=== PATIENT | male | born 1960 | race Caucasian/White ===

== ENCOUNTER 2019-11-16 08:05 | Outpatient (AMBR) | payer OTHER, MEDICAID, SELFPAY ==
--- NOTE | 2019-11-16 08:45 | PT.OIERPT ---
PT OP Initial Eval Patient Information Visit Reasons: [facility] Medical Diagnosis: M54.16 Treatment Dx #1: Back Pain Treatment Dx #2: L/S Mobility Deficits Start of Care: 11/16/19 Date of Onset: 5 years ago Initial Assessment Subjective Pt is a 58 y/o male c/o chronic back pain (11/12) with intermittent shooting pain L>R. Pt's recent MRI found disc bulge at L2-L5 and schmorl's mode L1-L2. Pt has limitation with prolonged walking, standing, chores, self care, riding his bike, lifting, recreational activities, and performing yardwork. Pt mention that he tried shots in the back which seems to give him some relief for a few weeks. Objective L/S AROM: all motions are WFL with end range pain in left sidebending and extension Hip PROM: all motions are WFL Hip MMTs Glute Med: 3/5 Glute Max: 3/5 Special Test (+) L/S quadrant (+) nati's Palpation: TTP left L1-L3 facets Assessment Pt demonstrate L/S mobility deficits with pain leading to decline function and difficulty with ADLs. Pt will attempt physical therapy if pain persist Pt will be refer back to MD for further consultation. Short Term and Senior Care Goals 1) Increase L/S AROM WNL in 6 wks to be able to perform chores 2) Increase core strength WFL in 6 wks to be able to perform lifting activities 3) Decrease back pain to 3/10 in 6 wks to be able to sit and stand more than 1 hr 4) Increase hip MMTs grossly to 4-/5 in 6 wks to be able to perform yardwork 5) Indep with HEP Treatment Plan 1) Manual Therapy 2) Therapeutic Activities 3) Therapeutic Exercises 4) Modalities (ice, heat, traction) Frequency and Duration 2 x wk for 6 wks Certification Dates: to 02/16/20 Office Procedures PT Procedures PT Date of Service: 11/16/19 OP PT Eval Mod Complex 30 minutes: Yes
--- NOTE | 2019-11-19 14:23 | PTNOTE_ITS ---
PT Outpatient Daily Note Date of Service: 11/19/2019 OP Daily Note Visit Reasons: [facility] Outpatient Physical Therapy Treatment Date: 11/19/19 Subjective: pt states his back pain is not as bad as he took a shot for pain. pt requested e-stim upon approach. spoke with PT and he agreed. Objective: see flow sheet. Assessment: started with modality in supine position in which pt stated he was ok with. he tolerated the position with no complaints. he does demonstrate poor posture as he has forward stoop posture. followed by bike with no resistance. he had good endurance with no fatigue. light resistance for BLE strengthening. pt was fatigued after treatment but denied increase in pain. Plan: continue POC per PT. Length of Time (minutes) of Treatment: 30 Minutes FINANCIAL ADVISOR Service Modifier Method I: Divide the number of min of care provided by the FINANCIAL ADVISOR/CAN CUTTER by the total min of care provided then multiply by 100. If greater than 11 percent modifier is required. Method II: Divide the total time of care provided to patient by 10 (round to the nearest whole number) and add 1 min. to set the minimum time requirement. If treatment total was 60 min., then 10% of 6 min Did FINANCIAL ADVISOR provide more than 10% of the care?: Yes PT CQ modifier applied: CQ Modifier applied Office Procedures PT Procedures PT Date of Service: 11/19/19 Therapeutic Exercise 30 minutes: Yes PT Procedures PT Date of Service: 11/16/19 OP PT Eval Mod Complex 30 minutes: Yes
--- NOTE | 2019-11-23 10:08 | PT.ODAYNRPT ---
PT Outpatient Daily Note Date of Service: 11/23/2019 OP Daily Note Visit Reasons: [facility] Outpatient Physical Therapy Treatment Date: 11/23/19 Subjective: pt states his back feels the same. he had no complaints from last visit. Objective: see flow sheet. Assessment: added heat during estim in supine in which he had no difficulty getting into position and getting up. added another exercise inside the PB similar to the other ones in which he had no difficulty with. during new exercise for back strengthening he does not have much mid back muscle activation as palpated as he retracted the mid back. Plan: continue POC per PT. Office Procedures PT Procedures PT Date of Service: 11/19/19 Therapeutic Exercise 30 minutes: Yes PT Procedures PT Date of Service: 11/16/19 OP PT Eval Mod Complex 30 minutes: Yes PT Procedures PT Date of Service: 11/23/19 OP Electrical Stimul Unattended: Yes Therapeutic Exercise 15 minutes: Yes
--- NOTE | 2019-11-26 12:30 | PT.ODAYNRPT ---
PT Outpatient Daily Note Date of Service: 11/25/19 OP Daily Note Visit Reasons: [facility] Outpatient Physical Therapy Treatment Date: 11/25/19 Subjective: Pt's back is a little better. Pt received another shot in his back. Pt will like to skip e-stim today Objective: Please see flow chart for list fo ther ex performed Assessment: tolerate exercises with minimal pain;slight soreness after therapy session Plan: Continue with PT Length of Time (minutes) of Treatment: 30 Minutes Office Procedures PT Procedures PT Date of Service: 11/19/19 Therapeutic Exercise 30 minutes: Yes PT Procedures PT Date of Service: 11/25/19 Therapeutic Exercise 30 minutes: Yes PT Procedures PT Date of Service: 11/16/19 OP PT Eval Mod Complex 30 minutes: Yes PT Procedures PT Date of Service: 11/23/19 OP Electrical Stimul Unattended: Yes Therapeutic Exercise 15 minutes: Yes
--- NOTE | 2019-12-02 10:48 | PT.ODAYNRPT ---
PT Outpatient Daily Note Date of Service: 12/02/19 OP Daily Note Visit Reasons: [facility] Outpatient Physical Therapy Treatment Date: 12/02/19 Subjective: Pt's back feels stronger and will like to continue PT Objective: Please see flow chart for list of ther ex performed Assessment: tolerate exercises with minimal pain Plan: Continue with PT Length of Time (minutes) of Treatment: 30 Minutes Office Procedures PT Procedures PT Date of Service: 11/19/19 Therapeutic Exercise 30 minutes: Yes PT Procedures PT Date of Service: 11/25/19 Therapeutic Exercise 30 minutes: Yes PT Procedures PT Date of Service: 12/02/19 Therapeutic Exercise 30 minutes: Yes PT Procedures PT Date of Service: 11/16/19 OP PT Eval Mod Complex 30 minutes: Yes PT Procedures PT Date of Service: 11/23/19 OP Electrical Stimul Unattended: Yes Therapeutic Exercise 15 minutes: Yes
== END 2019-12-04 23:59 | disposition home or self-care (01) ==
PROVIDERS: PCP Family Medicine; Referring Provider Family Medicine; Visit Provider Physical Medicine & Rehabilitation Pain Medicine
DX: M54.16 Radiculopathy, lumbar region (principal); M54.5 Low back pain; G89.29 Other chronic pain; R26.2 Difficulty in walking, not elsewhere classified
CPT/HCPCS: 97014; 97110; 97162; G0283

== ENCOUNTER 2024-03-26 09:51 | Emergency (ER) | payer MEDICARE, SELFPAY ==
[2024-03-26 09:52] VITALS: PULSE 89; RESP 18; O2SAT 98
[2024-03-26 10:03] VITALS: BP 135/97; PULSE 83; RESP 19; TEMP 36.2; O2SAT 99; BMI 32.4
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
[2024-03-26] MEDS: DIAZEPAM 5 MG TABLET 10 MG PO (10:25)
[2024-03-26] MEDS: KETOROLAC INJ 30 MG/ML VIAL IM (10:25)
== END 2024-03-26 10:30 | disposition home or self-care (01) ==
LOC: SERX 10:31
PROVIDERS: Emergency Provider Emergency Medicine
DX: M62.838 Other muscle spasm (principal); M25.511 Pain in right shoulder; I10 Essential (primary) hypertension; Z87.891 Personal history of nicotine dependence; Z88.5 Allergy status to narcotic agent
CPT/HCPCS: 96372; 99283; J1885; A9270

== ENCOUNTER 2024-06-15 21:01 | Emergency (ER) | payer MEDICARE, MEDICAID, SELFPAY ==
[2024-06-15 21:12] VITALS: PULSE 77; RESP 20; O2SAT 99; BMI 27.3
[2024-06-15 21:21] VITALS: BP 136/91; PULSE 79; RESP 18; TEMP 36.7; O2SAT 96
--- NOTE | 2024-06-15 21:37 | XR_ITS ---
Examination: Knee, right , 3 views Technique: Knee AP, lateral, oblique 3 views Date and time of exam: June 15, 2024 2143 hrs. Indications: Twisting injury to the knee yesterday, knee pain. 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
--- NOTE | 2024-06-15 21:38 | PD.EDRME ---
Rapid Medical Screening Exam RME Arrival date/time: 06/15/24 21:01 63-year-old male presents emergency department complaining of right knee pain after having a twisting motion yesterday. Patient denies actual fall. Chief Complaint: Extremity Injury, Lower Time Seen by Provider: 06/15/24 21:20 Vital signs: Vital Signs Temperature 98.0 F 06/15/24 21:21 Pulse Rate 79 06/15/24 21:21 Respiratory Rate 18 06/15/24 21:21 Blood Pressure 136/91 H 06/15/24 21:21 Pulse Oximetry (%) 96 06/15/24 21:21 Oxygen Delivery Method Room Air 06/15/24 21:21 Vital signs reviewed by provider: Yes
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
[2024-06-15] MEDS: KETOROLAC INJ 60 MG/2 ML VIAL 30 MG IM (22:46)
== END 2024-06-15 23:08 | disposition home or self-care (01) ==
LOC: SERX 23:13
PROVIDERS: Emergency Provider Emergency Medicine; PCP Internal Medicine
DX: M25.461 Effusion, right knee (principal); M23.91 Unspecified internal derangement of right knee; S89.91XA Unspecified injury of right lower leg, initial encounter; X50.1XXA Overexertion from prolonged static or awkward postures, initial encounter
CPT/HCPCS: 73564; 96372; 99283; J1885

== ENCOUNTER 2024-08-21 11:28 | Emergency (ER) | payer MEDICARE, SELFPAY ==
--- NOTE | 2024-08-21 | XR_ITS ---
Examination: MRI cervical spine without intravenous contrast Date and time of exam: August 21, 2024 at 1325 hours INDICATIONS: Neck pain getting worse the last 2 months, CT cervical spine February 28, 2024 cortical erosions contiguous margins C4-C5 Technique: Multiple axial and sagittal sections of the cervical spine to been obtained. T2 weighted sagittal sections, TR 3, 270, TE 117 T1-weighted sagittal sections, TR 500, TE 11 T1-weighted axial sections, TR 607, TE 12, axial sections TR 18, TE 27 and T2 weighted transverse sections, TR 3920, TE 122. Findings: Adequate alignment cervical vertebral bodies No cervical fracture Intact odontoid Advanced disc narrowing C3-C4, C4-C5 No localized enlargement cervical cord On the T2-weighted images increased signal C3, C4, C5 The disc at the C3-C4 C4-C5 level do not show increased signal C2-C3 no disc protrusion C3-C4 moderate bilateral neural foraminal stenosis C4-C5 advanced bilateral neural foraminal stenosis C5-C6 advanced bilateral neural foraminal stenosis C6-C7 advanced bilateral neural foraminal stenosis C7-T1 no disc protrusion IMPRESSION: No findings diagnostic for discitis Increased signal diffusely involving the C3, C4, C5 vertebral bodies Consider elective whole body bone scan follow-up to exclude osseous metastatic disease Cervical spinal stenosis as above
[2024-08-21 11:28] VITALS: BMI 27.3
[2024-08-21 11:36] VITALS: BP 128/80; PULSE 78; RESP 21; TEMP 36.6; O2SAT 95
--- NOTE | 2024-08-21 11:45 | PD.EDRME ---
Rapid Medical Screening Exam RME Arrival date/time: 08/21/24 11:28 63-year-old male with DDD presents to the emergency department today with complaints of neck pain worse with movement Chief Complaint: Extremity Injury, Upper Vital signs: Vital Signs Temperature 97.9 F 08/21/24 11:36 Pulse Rate 78 08/21/24 11:36 Respiratory Rate 21 H 08/21/24 11:36 Blood Pressure 128/80 08/21/24 11:36 Pulse Oximetry (%) 95 08/21/24 11:36 Oxygen Delivery Method Room Air 08/21/24 11:36
[2024-08-21] MEDS: traMADol HCL 50 MG TABLET PO (11:48)
--- NOTE | 2024-08-21 13:13 | PC.NURSE ---
PT CAME UP TO THIS RN AND SAID HE DOESN'T WANT TO WAIT ANYMORE, AND WALKED OUT THE DOOR.
--- NOTE | 2024-08-21 13:23 | PC.NURSE ---
PT CAME BACK WHILE THIS RN WAS AWAY FROM DESK PERFORMING A NURSING TASK, AND CALLED TO MRI W/O THIS RNS KNOWLEDGE, THUS RN CONTINUED WITH ELOPMENT DISCHARGE AFTER RETURNING TO DESK.
[2024-08-21 14:23] LABS: Basophils # (Auto) 0.1 Thou/mm3 (0.0-0.2); Basophils % (Auto) 1 % (0-2.5); Eosinophils # (Auto) 0.3 Thou/mm3 (0.0-0.5); Eosinophils % (Auto) 5 % (0-10); Hematocrit 41.2 % (41.0-53.0); Immature Granulocytes % (Auto) 0 % (0-0); Immature Granulocytes Auto 0.01 Thou/mm3 (0.00-0.00); Lymphocytes # (Auto) 1.3 Thou/mm3 (1.0-4.8); Lymphocytes % (Auto) 23 % (10-50); Mean Corpuscular Hemoglobin 32.2 pg (25.0-35.0); Mean Corpuscular Volume 95 fL (80-100); Monocytes # (Auto) 0.5 Thou/mm3 (0.0-0.8); Monocytes % (Auto) 8 % (0-12); Neutrophils # (Auto) 3.7 Thou/mm3 (1.8-7.7); Neutrophils % (Auto) 63 % (37-80); Nucleated Red Blood Cell % 0 /100 WBC (0); Platelet Count 173 Thou/mm3 (140-440); RDW Standard Deviation 44.4 fL (35.1-43.9); Red Blood Count 4.35 Miln/mm3 (4.50-5.90); White Blood Count 5.8 Thou/mm3 (3.8-10.6)
[2024-08-21 14:32] LABS: Sed Rate (ESR) 3 mm/hr (0-20)
[2024-08-21 14:42] LABS: Alanine Aminotransferase 14 U/L (10-49); Albumin, Serum 3.8 gm/dL (3.4-4.8); Albumin/Globulin Ratio 1.7 (1.2-2.2); Alkaline Phosphatase 83 U/L (46-116); Anion Gap 0 (7-16); Aspartate Amino Transferase 17 U/L (0-34); BUN/Creatinine Ratio 13 Ratio (12-20); Bilirubin,Total 0.4 mg/dL (0.3-1.2); Blood Urea Nitrogen 13 mg/dL (9-23); C-Reactive Protein < 0.5 mg/dL (0.0-0.9); Calcium (Corrected) 9.2 mg/dL (8.5-10.1); Carbon Dioxide 33.8 mMol/L (20.0-31.0); Chloride 106 mMol/L (98-107); Estimated Creatinine Clearance 75.1 mL/min (>60); Globulin 2.3 gm/dL (2.3-3.5); Glucose 108 mg/dL (74-106); Osmolality,Calculated 280 (275-295); Potassium 4.5 mMol/L (3.4-5.1); Sodium 140 mMol/L (136-145); Total Protein 6.1 gm/dL (5.7-8.2); eGFR > 60 See Note
--- NOTE | 2024-08-21 15:44 | PC.NURSE ---
PT ELOPED AGAIN
== END 2024-08-21 15:45 | disposition left against medical advice (07) ==
LOC: SERX 12:18
PROVIDERS: Emergency Provider Emergency Medicine; PCP Internal Medicine
DX: M54.2 Cervicalgia (principal); Z53.29 Procedure and treatment not carried out because of patient's decision for other reasons
CPT/HCPCS: 36415; 72141; 80053; 85025; 85652; 86140; 99281; A9270

== ENCOUNTER 2024-09-02 17:58 | Emergency (ER) | payer MEDICARE, SELFPAY ==
[2024-09-02 18:17] VITALS: BP 133/83; PULSE 97; RESP 18; TEMP 36.9; O2SAT 97; BMI 28.1
[2024-09-02] MEDS: KETOROLAC INJ 60 MG/2 ML VIAL IM (18:35)
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
== END 2024-09-02 18:54 | disposition home or self-care (01) ==
LOC: SERX 18:58
PROVIDERS: Emergency Provider Emergency Medicine
DX: M54.2 Cervicalgia (principal); I10 Essential (primary) hypertension
CPT/HCPCS: 96372; 99283; J1885

== ENCOUNTER 2024-09-18 08:18 | Outpatient (RCR) | payer MEDICARE, SELFPAY ==
--- NOTE | 2024-09-18 | XR_ITS ---
Examination: Bone scan whole body, radioisotope Date and time of exam: September 18, 2024 1328 hours Comparison November 21, 2011 INDICATIONS: Increased signal in the C3 C4 C5 vertebral bodies on the MRI cervical spine August 21, 2024 Technique: Study has been performed with intravenous administration of 22.4 mci 99M technetium MDP. Anterior, posterior whole body images are obtained. Images have been obtained including the lower extremities. Findings: Increased isotope accumulation in the cervical spine on the posterior view centered at C4-C5 Asymmetric uptake about the knees Uptake in the left kidney versus posterior lower left ribs IMPRESSION: Positive bone scan most prominent uptake posteriorly at C4-C5 Consider follow-up MRI cervical spine post intravenous contrast
== END 2024-09-23 23:59 | disposition home or self-care (01) ==
LOC: SNUC 08:18
PROVIDERS: PCP Internal Medicine; Referring Provider Orthopaedic Surgery; Visit Provider Orthopaedic Surgery
DX: R93.7 Abnormal findings on diagnostic imaging of other parts of musculoskeletal system (principal); C79.9 Secondary malignant neoplasm of unspecified site
CPT/HCPCS: 78306; A9503

== ENCOUNTER 2024-11-07 15:17 | Emergency (ER) | payer MEDICARE, SELFPAY ==
[2024-11-07 15:18] VITALS: PULSE 92; RESP 18; O2SAT 99; BMI 29.0
[2024-11-07 15:21] VITALS: BP 118/75; PULSE 115; RESP 18; TEMP 36.7; O2SAT 95
--- NOTE | 2024-11-07 15:28 | XR_ITS ---
Examination: Knee, left , 3 views Technique: Knee AP, lateral, oblique 3 views Date and time of exam: November 07, 2024 1549 hours INDICATIONS: Twisting injury to the knee today, knee pain. FINDINGS: Severe osteopenia Prosthetic component which articulates with the patella Old bone associated anterior tibial tubercle Moderate knee effusion No acute fracture Suprapatellar joint bodies IMPRESSION: No acute fracture
--- NOTE | 2024-11-07 15:28 | PD.EDLOWEX ---
Lower Extremity Injury RME/HPI General Chief Complaint: Extremity Injury, Lower Stated Complaint: LEFT KNEE PAIN Time Seen by Provider: 11/07/24 15:27 Arrival date/time: 11/07/24 15:17 Mode of arrival: EMS Limitations: no limitations RME / HPI RME / HPI Narrative: 63-year male was brought in by EMS for left knee pain. He states he was changing a light bulb when he had a twisting injury. He had no associated falls. He has diffuse left knee swelling without any gross deformities. He is able to self ambulate with discomfort. He has no other acute complaints. Related Data Home Medications ?Medication ?Instructions ?Recorded ?Confirmed omeprazole 40 mg capsule,delayed 40 mg PO QDAY 09/19/22 01/24/23 release allopurinol 300 mg tablet 300 mg PO QDAY 11/29/22 01/24/23 atorvastatin 40 mg tablet 40 mg PO QPM 11/29/22 01/24/23 loratadine 10 mg tablet (Claritin) 10 mg PO QDAY 01/24/23 01/24/23 metoprolol succinate 50 mg 50 mg PO QDAY 01/24/23 01/24/23 tablet,extended release 24 hr Previous Rx's ?Medication ?Instructions ?Recorded tamsulosin 0.4 mg capsule (Flomax) 0.4 mg PO Q24H #90 caps 11/30/22 tramadol 50 mg tablet 50 mg PO TID PRN pain #7 tabs 01/25/23 ibuprofen 600 mg tablet 600 mg PO Q8H PRN fever or pain 09/18/23 #20 tabs hydrocodone 5 mg-acetaminophen 325 1 tab PO BID PRN pain #10 tabs 03/26/24 mg tablet ibuprofen 800 mg tablet 800 mg PO TID PRN pain #30 tabs 03/26/24 ibuprofen 600 mg tablet 600 mg PO Q8H PRN pain #20 tabs 06/15/24 Allergies Allergy/AdvReac Type Severity Reaction Status Date / Time morphine Allergy Severe Rash Verified 11/07/24 15:21 codeine Allergy Intermediate Hives Verified 11/07/24 15:21 Penicillins Allergy Intermediate Rash Verified 11/07/24 15:21 propoxyphene Allergy Intermediate Rash Verified 11/07/24 15:21 Review of Systems Review of Systems Systems Reviewed: All systems reviewed, normal except as documented ED Exam General Limitations: Present no limitations General appearance: Present alert and in no apparent distress Head Head exam: Present atraumatic Eye Eye exam: Present normal appearance, PERRL and EOMI ENT ENT exam: Present normal exam, normal oropharynx and mucous membranes moist Neck Neck exam: Present normal inspection, full ROM and trachea midline Chest Chest inspection: Present normal inspection and symmetric chest wall rise Respiratory Respiratory exam: Present normal lung sounds bilaterally Cardiovascular Cardiovascular exam: Present regular rate, normal rhythm and normal heart sounds Abdominal Exam Abdominal exam: Present soft and normal bowel sounds Extremities Exam Extremities exam: Present other (Patient has full passive range of motion with discomfort. Mild crepitus is present. Mild joint edema and warmth is present. There are no open wounds. No induration or fluctuance. No blotting of the patella.) Back Exam Back exam: Present normal inspection and full ROM Neurological Exam Neurological exam: Present alert, oriented X3 and CN II-XII intact Psychiatric Psychiatric exam: Present normal affect and normal mood Skin Skin exam: Present warm, dry, intact and normal color Course Quality Measures none Orders Category Date Time Status XR knee LT 3V Stat Exams 11/07/24 15:28 Completed Acetaminophen Tab [Tylenol Tab] Med 11/07/24 15:28 Discontinued 650 mg PO X1 ONE Ibuprofen Tab [Motrin Tab] Med 11/07/24 15:28 Discontinued 600 mg PO X1 ONE Vital Signs Vital signs: Vital Signs Temperature 98.0 F 11/07/24 15:21 Pulse Rate 115 H 11/07/24 15:21 Respiratory Rate 18 11/07/24 15:21 Blood Pressure 118/75 11/07/24 15:21 Pulse Oximetry (%) 95 11/07/24 15:21 Oxygen Delivery Method Room Air 11/07/24 15:21 Extremity Injury, Lower MDM Narrative MDM Narrative:: Patient eloped from the ER prior to receiving his x-ray results. Patient data External records reviewed:: None Clinical information provided by:: patient and EMS Social determinants that could affect healthcare access:: none Patient has the following chronic illnesses:: n/a How is presenting disease/condition affected by chronic disease/condition?: no chronic disease Evaluation data The following diagnostics were reviewed and interpreted by me:: radiology exam(s) (No acute osseous injury) Lab and/or radiology exams considered but not ordered:: n/a Interpretation Summary: No acute osseous injury Medications / Prescriptions Medications or Prescriptions considered but not ordered:: n/a Medication administrations:: Medication Administration History Discontinued Medications Acetaminophen (Acetaminophen 325 Mg Tablet) 650 mg PO X1 ONE Stop: 11/07/24 15:29 Last Admin: 11/07/24 16:13 Dose: 650 mg Documented By: ROBBIE Ibuprofen (Ibuprofen Tab 600 Mg Tablet) 600 mg PO X1 ONE Stop: 11/07/24 15:29 Last Admin: 11/07/24 16:12 Dose: 600 mg Documented By: ROBBIE See above Consultations Consultation(s) initiated? (list below): No Diagnosis Most likely diagnosis given after review of the tests above:: Knee sprain Admission Indicated Admission indicated?: not indicated Admission Request Was there a request for admission?: No Disposition Plan Disposition Plan: other (specify) (patient eloped ) Discharge Plan Plan Patient Disposition: Elopement Prescriptions/Referrals Prescriptions/Med Rec: No Action omeprazole 40 mg Capsule,Delayed Release(Dr/Ec) 40 mg PO QDAY atorvastatin 40 mg Tablet 40 mg PO QPM allopurinol 300 mg Tablet 300 mg PO QDAY tamsulosin [Flomax] 0.4 mg capsule 0.4 mg PO Q24H Qty: 90 0RF Rx Instructions: administer 30 minutes after same meal each day; swallow whole with liquid; do not crush/chew/dissolve/open ibuprofen 600 mg tablet 600 mg PO Q8H PRN (Reason: fever or pain) Qty: 20 0RF ibuprofen 800 mg tablet 800 mg PO TID PRN (Reason: pain) Qty: 30 0RF hydrocodone-acetaminophen 5-325 mg tablet 1 tab PO BID MDD 10 PRN (Reason: pain) Qty: 10 0RF metoprolol succinate 50 mg Tablet Extended Release 24 Hr 50 mg PO QDAY loratadine [Claritin] 10 mg Tablet 10 mg PO QDAY tramadol 50 mg tablet 50 mg PO TID PRN (Reason: pain) Qty: 7 0RF ibuprofen 600 mg tablet 600 mg PO Q8H PRN (Reason: pain) Qty: 20 0RF Referrals: Moises Lau MD [Primary Care Provider] - In 1 week Problem List Clinical Impression: Eloped from emergency department Patient/Caregiver Discharge Instructions Print Language: Filipino
[2024-11-07] MEDS: IBUPROFEN TAB 600 MG TABLET PO (16:12)
[2024-11-07] MEDS: ACETAMINOPHEN 325 MG TABLET 650 MG PO (16:13)
--- NOTE | 2024-11-07 20:43 | PC.NURSE ---
PER OTHER PATIENT IN LOBBY WHO KNOWS THIS PATIENT, SHE STATES THE PATIENT LEFT AND WENT HOME. THERE WAS ALSO NO ANSWER WHEN NELLY
--- NOTE | 2024-11-07 20:44 | PC.NURSE ---
ACCORDING TO OTHER PATIENT IN THE LOBBY, PT LEFT AND WENT HOME, OTHER PATIENTS STATES SHE KNOWS HIM. THERE WAS ALSO NO ANSWER X3 FOR PATIENT
== END 2024-11-07 20:45 | disposition left against medical advice (07) ==
PROVIDERS: Emergency Provider Emergency Medicine; PCP Family Medicine
DX: M25.462 Effusion, left knee (principal); X50.1XXA Overexertion from prolonged static or awkward postures, initial encounter; Z53.29 Procedure and treatment not carried out because of patient's decision for other reasons
CPT/HCPCS: 73562; 99283; A9270

== ENCOUNTER 2024-12-13 07:58 | Emergency (ER) | payer MEDICARE, SELFPAY ==
[2024-12-13 08:06] VITALS: BP 142/84; PULSE 94; RESP 17; TEMP 36.6; O2SAT 97; BMI 28.1
[2024-12-13] MEDS: CLINDAMYCIN PHOS INJ 150 MG/ML VIAL 6 ML 600 MG IM (08:27)
--- NOTE | 2024-12-13 09:02 | PD.EDSKIN ---
ED Skin Abcess FB-RME/HPI General Chief complaint: Skin/Abscess/Foreign Body Stated complaint: L ARM ABSCESS X 3 DAYS Time Seen by Provider: 12/13/24 08:03 Arrival date/time: 12/13/24 07:58 63-year-old male who admits to methamphetamine abuse presents the emergency department today for complaints of erythema to the left antecubital area Limitations: no limitations Related Data Home Medications ?Medication ?Instructions ?Recorded ?Confirmed omeprazole 40 mg capsule,delayed 40 mg PO QDAY 09/19/22 01/24/23 release allopurinol 300 mg tablet 300 mg PO QDAY 11/29/22 01/24/23 atorvastatin 40 mg tablet 40 mg PO QPM 11/29/22 01/24/23 loratadine 10 mg tablet (Claritin) 10 mg PO QDAY 01/24/23 01/24/23 metoprolol succinate 50 mg 50 mg PO QDAY 01/24/23 01/24/23 tablet,extended release 24 hr Previous Rx's ?Medication ?Instructions ?Recorded tamsulosin 0.4 mg capsule (Flomax) 0.4 mg PO Q24H #90 caps 11/30/22 tramadol 50 mg tablet 50 mg PO TID PRN pain #7 tabs 01/25/23 ibuprofen 600 mg tablet 600 mg PO Q8H PRN fever or pain 09/18/23 #20 tabs hydrocodone 5 mg-acetaminophen 325 1 tab PO BID PRN pain #10 tabs 03/26/24 mg tablet ibuprofen 800 mg tablet 800 mg PO TID PRN pain #30 tabs 03/26/24 ibuprofen 600 mg tablet 600 mg PO Q8H PRN pain #20 tabs 06/15/24 clindamycin HCl 150 mg capsule 450 mg (3 x 150 mg) PO TID 7 days 12/13/24 #63 caps ibuprofen 800 mg tablet 800 mg PO TID PRN pain #30 tabs 12/13/24 Allergies Allergy/AdvReac Type Severity Reaction Status Date / Time morphine Allergy Severe Rash Verified 12/13/24 08:01 codeine Allergy Intermediate Hives Verified 12/13/24 08:01 Penicillins Allergy Intermediate Rash Verified 12/13/24 08:01 propoxyphene Allergy Intermediate Rash Verified 12/13/24 08:01 Review of Systems Review of Systems Systems Reviewed: All systems reviewed, normal except as documented Constitutional Constitutional: Reports system reviewed and no additional complaints, except as documented, Denies fever(s) and Denies headache(s) Eyes Eyes: Reports system reviewed and no additional complaints, except as documented and Denies blurry vision ENT Ears, Nose, Mouth, and Throat: Reports system reviewed and no additional complaints, except as documented, Denies headache(s), Denies nasal congestion and Denies nasal discharge Cardiovascular Cardiovascular: Reports system reviewed and no additional complaints, except as documented, Denies chest pain and Denies dyspnea Respiratory Respiratory: Reports system reviewed and no additional complaints, except as documented, Denies chest congestion, Denies cough and Denies dyspnea Gastrointestinal Gastrointestinal: Reports system reviewed and no additional complaints, except as documented and Denies abdominal pain Integumentary/Breasts Skin/Breast: Reports system reviewed and no additional complaints, except as documented, Denies rash and Reports other (Cellulitis left arm) Neurologic Neurologic: Reports system reviewed and no additional complaints, except as documented, Reports as per HPI and Denies headache(s) Past Medical History Past Medical History NEUROLOGIC: Negative Neurological Disorders or Seizures CARDIAC: Positive Cardiac Disorders, Hypercholesterolemia and Hypertension; Negative Congestive Heart Failure RESPIRATORY: Negative Chronic Obstructive Pulmonary Disease (COPD) GASTROINTESTINAL: Positive Gastrointestinal Disorders, Gastroesophageal Reflux Disease and Obesity; Negative Hepatitis GENITOURINARY: Positive Genitourinary Disorders and Kidney Stones; Negative Renal Disease MUSCULOSKELETAL: Positive Musculoskeletal Disorders, Arthritis, Gout and Carpal Tunnel Syndrome ENDOCRINE: Negative Endocrine Disorders, Diabetes Mellitus Type 1 or Diabetes Mellitus Type 2 HEMATOLOGIC: Negative Blood Disorders PSYCHO/SOCIAL: Positive Recreational Drug Use; Negative Depression OTHER HISTORY: Positive Hospitalization, Chicken Pox, Measles and Mumps; Negative Autoimmune Disease, Shingles, Blood Transfusions, Blood Transfusion Reaction, Anesthesia Reactions, MRSA or Cancer Family History FAMILY HISTORY: Positive Family Surgery; Negative Family Psychiatric Problems, Family Respiratory Disorders, Family Cardiac Disorders, Family Gastrointestinal Problems, Family Cancer or Family Anesthesia Reaction Surgical History SURGICAL: Positive Eye Surgery, Abdominal Surgery, Bowel Surgery, Joint Replacement and Arthroscopy Social History SMOKING STATUS: Former smoker ED Exam General Limitations: Present no limitations General appearance: Present alert and in no apparent distress Head Head exam: Present atraumatic Eye Eye exam: Present normal appearance, PERRL and EOMI ENT ENT exam: Present normal exam, normal oropharynx and mucous membranes moist Neck Neck exam: Present normal inspection, full ROM and trachea midline Chest Chest inspection: Present normal inspection and symmetric chest wall rise Respiratory Respiratory exam: Present normal lung sounds bilaterally Cardiovascular Cardiovascular exam: Present regular rate, normal rhythm and normal heart sounds Abdominal Exam Abdominal exam: Present soft and normal bowel sounds Extremities Exam Extremities exam: Present normal inspection and full ROM Back Exam Back exam: Present normal inspection and full ROM Neurological Exam Neurological exam: Present alert, oriented X3 and CN II-XII intact Psychiatric Psychiatric exam: Present normal affect and normal mood Skin Skin exam: Present warm, dry, normal color and other (Cellulitis left arm) Course Quality Measures none Orders Category Date Time Status Clindamycin Vial [Cleocin vial] Med 12/13/24 08:08 Discontinued 600 mg IM X1 ONE Vital Signs Vital signs: Vital Signs Temperature 97.9 F 12/13/24 08:06 Pulse Rate 94 12/13/24 08:06 Respiratory Rate 17 12/13/24 08:06 Blood Pressure 142/84 H 12/13/24 08:06 Pulse Oximetry (%) 97 12/13/24 08:06 O2 saturation 97% room air within normal limits Skin / Abscess / Foreign Body MDM Narrative MDM Narrative:: 63-year-old male who admits to methamphetamine abuse presents the emergency department today for complaints of erythema to the left antecubital area On exam patient has erythema left AC space consistent with cellulitis patient does admit to injecting methamphetamine area no circumferential swelling noted. Patient given injection of antibiotics here discharge home with antibiotics Explained to the patient like to reevaluate in the legs couple of days for worsening symptoms or concerns return immediately Patient data External records reviewed:: [facility] previous records Clinical information provided by:: patient Social determinants that could affect healthcare access:: substance use Patient has the following chronic illnesses:: See history How is presenting disease/condition affected by chronic disease/condition?: caused by Evaluation data The following diagnostics were reviewed and interpreted by me:: other (specify) (N/A) Lab and/or radiology exams considered but not ordered:: Consider not ordered Interpretation Summary: N/A Medications / Prescriptions Medications or Prescriptions considered but not ordered:: Given Medication administrations:: Medication Administration History Discontinued Medications Clindamycin Phosphate (Clindamycin Phos Inj 150 Mg/Ml Vial 6 Ml) 600 mg IM X1 ONE Stop: 12/13/24 08:09 Last Admin: 12/13/24 08:27 Dose: 600 mg Documented By: AA Given Consultations Consultation(s) initiated? (list below): No Diagnosis Skin/Abscess Differential Diagnosis: abscess of skin or subcutaneous tissue and cellulitis Most likely diagnosis given after review of the tests above:: Cellulitis, drug abuse Admission Indicated Admission indicated?: not indicated Admission Request Was there a request for admission?: No Disposition Plan Disposition Plan: Discharge Discharge Attestation Discharge Attestation: The patient and all family members were given an opportunity to ask questions and understood the discharge instructions. Discharge instructions specifically effects, indications for sooner follow up or return to the emergency department, and the expected course of current diagnosis. Patient condition: Stable Discharge Plan Plan Patient Disposition: HOME (Self Care) Discharge Disposition comment: stable Prescriptions/Referrals Prescriptions/Med Rec: New ibuprofen 800 mg tablet 800 mg PO TID PRN (Reason: pain) Qty: 30 0RF clindamycin HCl 150 mg capsule 450 mg PO TID 7 Days Qty: 63 0RF No Action omeprazole 40 mg Capsule,Delayed Release(Dr/Ec) 40 mg PO QDAY atorvastatin 40 mg Tablet 40 mg PO QPM allopurinol 300 mg Tablet 300 mg PO QDAY tamsulosin [Flomax] 0.4 mg capsule 0.4 mg PO Q24H Qty: 90 0RF Rx Instructions: administer 30 minutes after same meal each day; swallow whole with liquid; do not crush/chew/dissolve/open ibuprofen 600 mg tablet 600 mg PO Q8H PRN (Reason: fever or pain) Qty: 20 0RF ibuprofen 800 mg tablet 800 mg PO TID PRN (Reason: pain) Qty: 30 0RF hydrocodone-acetaminophen 5-325 mg tablet 1 tab PO BID MDD 10 PRN (Reason: pain) Qty: 10 0RF metoprolol succinate 50 mg Tablet Extended Release 24 Hr 50 mg PO QDAY loratadine [Claritin] 10 mg Tablet 10 mg PO QDAY tramadol 50 mg tablet 50 mg PO TID PRN (Reason: pain) Qty: 7 0RF ibuprofen 600 mg tablet 600 mg PO Q8H PRN (Reason: pain) Qty: 20 0RF Problem List Clinical Impression: Cellulitis, Arm pain, left Patient/Caregiver Discharge Instructions Education Materials: ED Cellulitis Additional Instructions: Please follow up with your primary care doctor in the next 24-48hrs for any worsening symptoms return here immediately Print Language: Indian Stand Alone Forms: Britt Award Info., Patient Portal Info Letter PA/DEPUTY CHIEF COUNSEL Supervising Physician PA/DEPUTY CHIEF COUNSEL Supervising Physician: Dr. cayla JOE Attestation MD Attestation The patient was seen by the midlevel practitioner. I, the co-signing physician, was present during the entire ER visit. While I did not physically examine the patient, I was available for consultation as needed. I agree with the plan and documentation.
== END 2024-12-13 08:57 | disposition home or self-care (01) ==
LOC: SERX 08:15
PROVIDERS: Emergency Provider Nurse Practitioner Primary Care; PCP Internal Medicine
DX: L03.114 Cellulitis of left upper limb (principal); F15.10 Other stimulant abuse, uncomplicated; I10 Essential (primary) hypertension; E78.00 Pure hypercholesterolemia, unspecified; Z87.891 Personal history of nicotine dependence; Z79.899 Other long term (current) drug therapy; Z88.5 Allergy status to narcotic agent; Z88.0 Allergy status to penicillin; Z88.8 Allergy status to other drugs, medicaments and biological substances
CPT/HCPCS: 99283; J0736

== ENCOUNTER 2024-12-14 09:44 | Emergency (ER) | payer MEDICARE, SELFPAY ==
[2024-12-14 10:04] VITALS: BP 127/84; PULSE 90; RESP 18; TEMP 36.9; O2SAT 95; BMI 29.8
--- NOTE | 2024-12-14 10:11 | PD.EDSKIN ---
ED Skin Abcess FB-RME/HPI General Chief complaint: Skin/Abscess/Foreign Body Stated complaint: Left arm abscess Time Seen by Provider: 12/14/24 10:05 Source: patient Arrival date/time: 12/14/24 09:44 63-year-old male with a history of methamphetamine abuse presents to the emergency room with a chief complaint of redness and swelling to his left arm x 3 days. Mode of arrival: ambulatory Limitations: no limitations Related Data Home Medications ?Medication ?Instructions ?Recorded ?Confirmed omeprazole 40 mg capsule,delayed 40 mg PO QDAY 09/19/22 01/24/23 release allopurinol 300 mg tablet 300 mg PO QDAY 11/29/22 01/24/23 atorvastatin 40 mg tablet 40 mg PO QPM 11/29/22 01/24/23 loratadine 10 mg tablet (Claritin) 10 mg PO QDAY 01/24/23 01/24/23 metoprolol succinate 50 mg 50 mg PO QDAY 01/24/23 01/24/23 tablet,extended release 24 hr Previous Rx's ?Medication ?Instructions ?Recorded tamsulosin 0.4 mg capsule (Flomax) 0.4 mg PO Q24H #90 caps 11/30/22 tramadol 50 mg tablet 50 mg PO TID PRN pain #7 tabs 01/25/23 ibuprofen 600 mg tablet 600 mg PO Q8H PRN fever or pain 09/18/23 #20 tabs hydrocodone 5 mg-acetaminophen 325 1 tab PO BID PRN pain #10 tabs 03/26/24 mg tablet ibuprofen 800 mg tablet 800 mg PO TID PRN pain #30 tabs 03/26/24 ibuprofen 600 mg tablet 600 mg PO Q8H PRN pain #20 tabs 06/15/24 clindamycin HCl 150 mg capsule 450 mg (3 x 150 mg) PO TID 7 days 12/13/24 #63 caps ibuprofen 800 mg tablet 800 mg PO TID PRN pain #30 tabs 12/13/24 Allergies Allergy/AdvReac Type Severity Reaction Status Date / Time morphine Allergy Severe Rash Verified 12/14/24 09:48 codeine Allergy Intermediate Hives Verified 12/14/24 09:48 Penicillins Allergy Intermediate Rash Verified 12/14/24 09:48 propoxyphene Allergy Intermediate Rash Verified 12/14/24 09:48 Review of Systems Review of Systems Systems Reviewed: All systems reviewed, normal except as documented Constitutional Constitutional: Reports system reviewed and no additional complaints, except as documented, Denies fatigue, Denies fever(s), Denies headache(s) and Denies weakness Eyes Eyes: Reports system reviewed and no additional complaints, except as documented, Denies blurry vision and Denies change in vision ENT Ears, Nose, Mouth, and Throat: Reports system reviewed and no additional complaints, except as documented, Denies otalgia, Denies headache(s), Denies nasal congestion, Denies throat swelling and Denies vertigo Cardiovascular Cardiovascular: Reports system reviewed and no additional complaints, except as documented, Denies chest pain, Denies dyspnea and Denies dyspnea on exertion Respiratory Respiratory: Reports system reviewed and no additional complaints, except as documented, Denies chest congestion, Denies cough, Denies dyspnea, Denies dyspnea on exertion and Denies wheezing Gastrointestinal Gastrointestinal: Reports system reviewed and no additional complaints, except as documented, Denies abdominal pain, Denies cramping, Denies nausea and Denies vomiting Genitourinary Genitourinary: Reports system reviewed and no additional complaints, except as documented, Denies dysuria and Denies hematuria Musculoskeletal Musculoskeletal: Reports system reviewed and no additional complaints, except as documented and Denies back pain Integumentary/Breasts Skin/Breast: Reports system reviewed and no additional complaints, except as documented, Reports pruritus, Reports skin pain and Reports wounds Neurologic Neurologic: Reports system reviewed and no additional complaints, except as documented, Denies confusion, Denies headache(s), Denies lack of coordination, Denies vertigo and Denies weakness Psychiatric Psychiatric: Reports system reviewed and no additional complaints, except as documented, Denies anxiety, Denies confusion, Denies depression, Denies paranoia, Denies suicidal ideation and Denies tactile hallucinations Endocrine Endocrine: Reports system reviewed and no additional complaints, except as documented and Denies fatigue Hematologic/Lymphatic Hematologic/Lymphatic: Reports system reviewed and no additional complaints, except as documented and Denies lymphadenopathy Allergic/Immunologic Allergic/Immunologic: Reports system reviewed and no additional complaints, except as documented, Denies throat swelling, Denies urticaria and Denies wheezing ED Exam General Limitations: Present no limitations General appearance: Present alert and in no apparent distress Head Head exam: Present atraumatic Eye Eye exam: Present normal appearance, PERRL and EOMI ENT ENT exam: Present normal exam, normal oropharynx and mucous membranes moist Neck Neck exam: Present normal inspection, full ROM and trachea midline Chest Chest inspection: Present normal inspection and symmetric chest wall rise Respiratory Respiratory exam: Present normal lung sounds bilaterally Cardiovascular Cardiovascular exam: Present regular rate, normal rhythm and normal heart sounds Abdominal Exam Abdominal exam: Present soft and normal bowel sounds Extremities Exam Extremities exam: Present normal inspection and full ROM Back Exam Back exam: Present normal inspection and full ROM Neurological Exam Neurological exam: Present alert, oriented X3 and CN II-XII intact Psychiatric Psychiatric exam: Present normal affect and normal mood Skin Skin exam: Present warm, dry, intact and normal color Expanded Skin Exam Description: Present tenderness, erythematous and swelling; Absent discharge Body image:  1. There is a 2 cm area of erythema and some mild swelling to the left AC. Patient states this was from injecting methamphetamine. There is no abscess there is no pus or drainage at this time there is just some mild swelling redness and warmth. Course Quality Measures none Orders Category Date Time Status Clindamycin Vial [Cleocin vial] Med 12/14/24 10:11 Discontinued 600 mg IM X1 ONE Vital Signs Vital signs: Vital Signs Temperature 98.4 F 12/14/24 10:04 Pulse Rate 90 12/14/24 10:04 Respiratory Rate 18 12/14/24 10:04 Blood Pressure 127/84 12/14/24 10:04 Pulse Oximetry (%) 95 12/14/24 10:04 Oxygen Delivery Method Room Air 12/14/24 10:04 Skin / Abscess / Foreign Body MDM Narrative MDM Narrative:: 63-year-old male with a history of methamphetamine abuse presents to the emergency room with a chief complaint of redness and swelling to his left arm x 3 days. Patient is hemodynamically stable and in no apparent distress. He is afebrile not tachycardic not tachypneic Physical examination shows a 2 cm erythemic tender and warm to the touch area to the left AC. Patient states this was from using methamphetamine and injecting it into his vein. Patient was seen here yesterday and was given a shot of antibiotics and prescribed oral antibiotics. 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 At this time the area is not draining and the findings are consistent with some mild cellulitis. 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 The patient was also educated to return to the emergency room for any evidence of worsening signs or symptoms Patient data External records reviewed:: [facility] previous records Clinical information provided by:: patient Social determinants that could affect healthcare access:: none Patient has the following chronic illnesses:: No chronic illness How is presenting disease/condition affected by chronic disease/condition?: no chronic disease Evaluation data The following diagnostics were reviewed and interpreted by me:: lab results and radiology exam(s) Lab and/or radiology exams considered but not ordered:: Labs and radiology exams considered and ordered Interpretation Summary: N/A Medications / Prescriptions Medications or Prescriptions considered but not ordered:: Medication given Medication administrations:: Medication Administration History Discontinued Medications Clindamycin Phosphate (Clindamycin Phos Inj 150 Mg/Ml Vial 6 Ml) 600 mg IM X1 ONE Stop: 12/14/24 10:12 Last Admin: 12/14/24 10:31 Dose: 600 mg Documented By: Medication given Consultations Consultation(s) initiated? (list below): No Diagnosis Skin/Abscess Differential Diagnosis: abscess of skin or subcutaneous tissue and cellulitis Most likely diagnosis given after review of the tests above:: Cellulitis Admission Indicated Admission indicated?: not indicated Admission Request Was there a request for admission?: No Disposition Plan Disposition Plan: Discharge Discharge Attestation Discharge Attestation: The patient and all family members were given an opportunity to ask questions and understood the discharge instructions. Discharge instructions specifically effects, indications for sooner follow up or return to the emergency department, and the expected course of current diagnosis. Patient condition: Stable Discharge Plan Plan Patient Disposition: HOME (Self Care) Discharge Disposition comment: Stable Prescriptions/Referrals Prescriptions/Med Rec: No Action omeprazole 40 mg Capsule,Delayed Release(Dr/Ec) 40 mg PO QDAY atorvastatin 40 mg Tablet 40 mg PO QPM allopurinol 300 mg Tablet 300 mg PO QDAY tamsulosin [Flomax] 0.4 mg capsule 0.4 mg PO Q24H Qty: 90 0RF Rx Instructions: administer 30 minutes after same meal each day; swallow whole with liquid; do not crush/chew/dissolve/open ibuprofen 600 mg tablet 600 mg PO Q8H PRN (Reason: fever or pain) Qty: 20 0RF ibuprofen 800 mg tablet 800 mg PO TID PRN (Reason: pain) Qty: 30 0RF hydrocodone-acetaminophen 5-325 mg tablet 1 tab PO BID MDD 10 PRN (Reason: pain) Qty: 10 0RF metoprolol succinate 50 mg Tablet Extended Release 24 Hr 50 mg PO QDAY loratadine [Claritin] 10 mg Tablet 10 mg PO QDAY tramadol 50 mg tablet 50 mg PO TID PRN (Reason: pain) Qty: 7 0RF ibuprofen 600 mg tablet 600 mg PO Q8H PRN (Reason: pain) Qty: 20 0RF ibuprofen 800 mg tablet 800 mg PO TID PRN (Reason: pain) Qty: 30 0RF clindamycin HCl 150 mg capsule 450 mg PO TID 7 Days Qty: 63 0RF Problem List Clinical Impression: Cellulitis of arm, left Patient/Caregiver Discharge Instructions Education Materials: Discharge Instructions for Cellulitis, ED Cellulitis Additional Instructions: Please follow-up with your primary care provider in the next 24 to 48 hours 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 You need to pick them up and start taking them to prevent any worsening infection in your arm. For any evidence of worsening signs or symptoms return to the emergency room immediately Print Language: Belizean Stand Alone Forms: Britt Award Info., Patient Portal Info Letter PA/TELEGRAPH EQUIPMENT MAINTAINER Supervising Physician PA/MICHELLE Supervising Physician: Dr. Puneet JOE Attestation MD Attestation The patient was seen by the midlevel practitioner. I, the co-signing physician, was present during the entire ER visit. While I did not physically examine the patient, I was available for consultation as needed. I agree with the plan and documentation.
[2024-12-14] MEDS: CLINDAMYCIN PHOS INJ 150 MG/ML VIAL 6 ML 600 MG IM (10:31)
== END 2024-12-14 10:37 | disposition home or self-care (01) ==
LOC: SERX 10:16
PROVIDERS: Emergency Provider Family Medicine; PCP Family Medicine
DX: L03.114 Cellulitis of left upper limb (principal); F15.10 Other stimulant abuse, uncomplicated; Z88.5 Allergy status to narcotic agent; Z88.0 Allergy status to penicillin; Z88.6 Allergy status to analgesic agent
CPT/HCPCS: 96372; 99283; J0736

== ENCOUNTER 2024-12-22 13:45 | Emergency (ER) | payer MEDICARE, MEDICAID, SELFPAY ==
[2024-12-22 14:03] VITALS: BP 117/83; PULSE 60; RESP 18; TEMP 36.6; O2SAT 95; BMI 32.1
--- NOTE | 2024-12-22 14:10 | PD.EDSKIN ---
ED Skin Abcess FB-RME/HPI General Chief complaint: Skin/Abscess/Foreign Body Stated complaint: Left arm abscess over a week Time Seen by Provider: 12/22/24 13:56 Arrival date/time: 12/22/24 13:45 63-year-old male with history of methamphetamine abuse presents stating is currently been on antibiotics reports that he is swelling to his left AC region and is here for I&D Limitations: no limitations Related Data Home Medications ?Medication ?Instructions ?Recorded ?Confirmed omeprazole 40 mg capsule,delayed 40 mg PO QDAY 09/19/22 01/24/23 release allopurinol 300 mg tablet 300 mg PO QDAY 11/29/22 01/24/23 atorvastatin 40 mg tablet 40 mg PO QPM 11/29/22 01/24/23 loratadine 10 mg tablet (Claritin) 10 mg PO QDAY 01/24/23 01/24/23 metoprolol succinate 50 mg 50 mg PO QDAY 01/24/23 01/24/23 tablet,extended release 24 hr Previous Rx's ?Medication ?Instructions ?Recorded tamsulosin 0.4 mg capsule (Flomax) 0.4 mg PO Q24H #90 caps 11/30/22 tramadol 50 mg tablet 50 mg PO TID PRN pain #7 tabs 01/25/23 ibuprofen 600 mg tablet 600 mg PO Q8H PRN fever or pain 09/18/23 #20 tabs hydrocodone 5 mg-acetaminophen 325 1 tab PO BID PRN pain #10 tabs 03/26/24 mg tablet ibuprofen 800 mg tablet 800 mg PO TID PRN pain #30 tabs 03/26/24 ibuprofen 600 mg tablet 600 mg PO Q8H PRN pain #20 tabs 06/15/24 ibuprofen 800 mg tablet 800 mg PO TID PRN pain #30 tabs 12/13/24 Allergies Allergy/AdvReac Type Severity Reaction Status Date / Time morphine Allergy Severe Rash Verified 12/22/24 13:50 codeine Allergy Intermediate Hives Verified 12/22/24 13:50 Penicillins Allergy Intermediate Rash Verified 12/22/24 13:50 propoxyphene Allergy Intermediate Rash Verified 12/22/24 13:50 Review of Systems Review of Systems Systems Reviewed: All systems reviewed, normal except as documented Constitutional Constitutional: Reports system reviewed and no additional complaints, except as documented, Denies fever(s) and Denies headache(s) Eyes Eyes: Reports system reviewed and no additional complaints, except as documented and Denies blurry vision ENT Ears, Nose, Mouth, and Throat: Reports system reviewed and no additional complaints, except as documented, Denies headache(s), Denies nasal congestion and Denies nasal discharge Cardiovascular Cardiovascular: Reports system reviewed and no additional complaints, except as documented, Denies chest pain and Denies dyspnea Respiratory Respiratory: Reports system reviewed and no additional complaints, except as documented, Denies chest congestion, Denies cough and Denies dyspnea Gastrointestinal Gastrointestinal: Reports system reviewed and no additional complaints, except as documented and Denies abdominal pain Integumentary/Breasts Skin/Breast: Reports system reviewed and no additional complaints, except as documented, Denies rash and Reports other (Abscess left arm) Neurologic Neurologic: Reports system reviewed and no additional complaints, except as documented, Reports as per HPI and Denies headache(s) Past Medical History Past Medical History NEUROLOGIC: Negative Neurological Disorders or Seizures CARDIAC: Positive Cardiac Disorders, Hypercholesterolemia and Hypertension; Negative Congestive Heart Failure RESPIRATORY: Negative Chronic Obstructive Pulmonary Disease (COPD) GASTROINTESTINAL: Positive Gastrointestinal Disorders, Gastroesophageal Reflux Disease and Obesity; Negative Hepatitis GENITOURINARY: Positive Genitourinary Disorders and Kidney Stones; Negative Renal Disease MUSCULOSKELETAL: Positive Musculoskeletal Disorders, Arthritis, Gout and Carpal Tunnel Syndrome ENDOCRINE: Negative Endocrine Disorders, Diabetes Mellitus Type 1 or Diabetes Mellitus Type 2 HEMATOLOGIC: Negative Blood Disorders PSYCHO/SOCIAL: Positive Recreational Drug Use; Negative Depression OTHER HISTORY: Positive Hospitalization, Chicken Pox, Measles and Mumps; Negative Autoimmune Disease, Shingles, Blood Transfusions, Blood Transfusion Reaction, Anesthesia Reactions, MRSA or Cancer Family History FAMILY HISTORY: Positive Family Surgery; Negative Family Psychiatric Problems, Family Respiratory Disorders, Family Cardiac Disorders, Family Gastrointestinal Problems, Family Cancer or Family Anesthesia Reaction Surgical History SURGICAL: Positive Eye Surgery, Abdominal Surgery, Bowel Surgery, Joint Replacement and Arthroscopy Social History SMOKING STATUS: Former smoker ED Exam General Limitations: Present no limitations General appearance: Present alert and in no apparent distress Head Head exam: Present atraumatic Eye Eye exam: Present normal appearance, PERRL and EOMI ENT ENT exam: Present normal exam, normal oropharynx and mucous membranes moist Neck Neck exam: Present normal inspection, full ROM and trachea midline Chest Chest inspection: Present normal inspection and symmetric chest wall rise Respiratory Respiratory exam: Present normal lung sounds bilaterally Cardiovascular Cardiovascular exam: Present regular rate, normal rhythm and normal heart sounds Abdominal Exam Abdominal exam: Present soft and normal bowel sounds Extremities Exam Extremities exam: Present normal inspection and full ROM Back Exam Back exam: Present normal inspection and full ROM Neurological Exam Neurological exam: Present alert, oriented X3 and CN II-XII intact Psychiatric Psychiatric exam: Present normal affect and normal mood Skin Skin exam: Present warm and dry Expanded Skin Exam Body image:  1. Abscess Course Quality Measures none Orders Category Date Time Status Set Up Suture Tray STAT Care 12/22/24 14:10 Completed Wound Care NOW Care 12/22/24 14:10 Completed Lidocaine 1% 20 ml [Xylocaine 1% 20 ML] Med 12/22/24 14:10 Discontinued 2.1 ml INFL X1 ONE Lidocaine 1% 20 ml [Xylocaine 1% 20 ML] Med 12/22/24 14:10 Discontinued 20 ml INFL X1 ONE cefTRIAXone [Rocephin] Med 12/22/24 14:10 Discontinued 1,000 mg IM X1 ONE Vital Signs Vital signs: Vital Signs Temperature 98 F 12/22/24 14:03 Pulse Rate 60 12/22/24 14:03 Respiratory Rate 18 12/22/24 14:03 Blood Pressure 117/83 12/22/24 14:03 Pulse Oximetry (%) 95 12/22/24 14:03 Oxygen Delivery Method Room Air 12/22/24 14:03 O2 saturation 95% room air within normal limits PROCEDURES: Abscess I/D Site: upper extremity Side (if applicable): left Sedation/analgesia: none Local Anesthetic: lidocaine 1% Amount of anesthesia used (mL): 6 Technique: incised with #11 blade Amount of fluid expressed (mL): 10 Irrigation: Yes Packing used?: none Complications: pain Skin / Abscess / Foreign Body MDM Narrative MDM Narrative:: 63-year-old male with history of methamphetamine abuse presents stating is currently been on antibiotics reports that he is swelling to his left AC region and is here for I&D I did see this patient previously and told him that if his symptoms persist he will have to return for I&D Patient does have what appears to be a fluctuant abscess to left AC region I&D performed patient tolerated well Patient given Rocephin here instructed to continue taking antibiotics at home Patient discharged home in no distress to follow-up with primary care doctor in the next 24 to 48 hours and for any worsening symptoms to return to the ER immediately Patient data External records reviewed:: [facility] previous records Clinical information provided by:: patient Social determinants that could affect healthcare access:: none Patient has the following chronic illnesses:: None How is presenting disease/condition affected by chronic disease/condition?: no chronic disease Evaluation data The following diagnostics were reviewed and interpreted by me:: other (specify) (N/A) Lab and/or radiology exams considered but not ordered:: Considered not indicated Interpretation Summary: N/A Medications / Prescriptions Medications or Prescriptions considered but not ordered:: Given Medication administrations:: Medication Administration History Discontinued Medications Ceftriaxone Sodium (Ceftriaxone Sod Inj 1,000 Mg Vial) 1,000 mg IM X1 ONE Stop: 12/22/24 14:11 Last Admin: 12/22/24 15:02 Dose: 1,000 mg Documented By: Lidocaine HCl (Lidocaine Hcl 1% 20 Ml Vial) 2.1 ml INFL X1 ONE Stop: 12/22/24 14:11 Last Admin: 12/22/24 15:02 Dose: 2.1 ml Documented By: Admin: 12/22/24 15:02 Dose: 2.1 ml Documented By: Lidocaine HCl (Lidocaine Hcl 1% 20 Ml Vial) 20 ml INFL X1 ONE Stop: 12/22/24 14:11 Last Admin: 12/22/24 15:03 Dose: 20 ml Documented By: Given Consultations Consultation(s) initiated? (list below): No Diagnosis Skin/Abscess Differential Diagnosis: abscess of skin or subcutaneous tissue and cellulitis Most likely diagnosis given after review of the tests above:: Abscess Admission Indicated Admission indicated?: not indicated Admission Request Was there a request for admission?: No Disposition Plan Disposition Plan: Discharge Discharge Attestation Discharge Attestation: The patient and all family members were given an opportunity to ask questions and understood the discharge instructions. Discharge instructions specifically effects, indications for sooner follow up or return to the emergency department, and the expected course of current diagnosis. Patient condition: Stable Discharge Plan Plan Patient Disposition: HOME (Self Care) Discharge Disposition comment: Stable Prescriptions/Referrals Prescriptions/Med Rec: No Action omeprazole 40 mg Capsule,Delayed Release(Dr/Ec) 40 mg PO QDAY atorvastatin 40 mg Tablet 40 mg PO QPM allopurinol 300 mg Tablet 300 mg PO QDAY tamsulosin [Flomax] 0.4 mg capsule 0.4 mg PO Q24H Qty: 90 0RF Rx Instructions: administer 30 minutes after same meal each day; swallow whole with liquid; do not crush/chew/dissolve/open ibuprofen 600 mg tablet 600 mg PO Q8H PRN (Reason: fever or pain) Qty: 20 0RF ibuprofen 800 mg tablet 800 mg PO TID PRN (Reason: pain) Qty: 30 0RF hydrocodone-acetaminophen 5-325 mg tablet 1 tab PO BID MDD 10 PRN (Reason: pain) Qty: 10 0RF metoprolol succinate 50 mg Tablet Extended Release 24 Hr 50 mg PO QDAY loratadine [Claritin] 10 mg Tablet 10 mg PO QDAY tramadol 50 mg tablet 50 mg PO TID PRN (Reason: pain) Qty: 7 0RF ibuprofen 600 mg tablet 600 mg PO Q8H PRN (Reason: pain) Qty: 20 0RF ibuprofen 800 mg tablet 800 mg PO TID PRN (Reason: pain) Qty: 30 0RF Problem List Clinical Impression: Abscess of forearm, left Patient/Caregiver Discharge Instructions Education Materials: ED Abscess, Incision And Drainage Additional Instructions: Please follow up with your primary care doctor in the next 24-48hrs for any worsening symptoms return here immediately Print Language: Tajik Stand Alone Forms: Britt Award Info., Patient Portal Info Letter PA/COGENERATION TECHNICIAN Supervising Physician PA/COGENERATION TECHNICIAN Supervising Physician: Dr. harrington
[2024-12-22] MEDS: cefTRIAXone SOD INJ 1,000 MG VIAL 1000 MG IM (15:02)
[2024-12-22] MEDS: LIDOCAINE HCL 1% 20 ML VIAL 2.1 ML INFL ×2 (15:02)
[2024-12-22] MEDS: LIDOCAINE HCL 1% 20 ML VIAL INFL (15:03)
== END 2024-12-22 16:18 | disposition home or self-care (01) ==
LOC: SERX 14:34
PROVIDERS: Emergency Provider Nurse Practitioner Primary Care; PCP Family Medicine
DX: L02.414 Cutaneous abscess of left upper limb (principal); F15.10 Other stimulant abuse, uncomplicated
CPT/HCPCS: 10060; 96372; 99284; J0696; J3490